=== PATIENT | male | born 1945 | race Two or more races ===

== ENCOUNTER 2025-09-27 12:39 | Outpatient (AMB) | payer MEDICARE, SELFPAY ==
--- OUTSIDE RECORDS SUMMARY | 2025-09-22 08:10 | XMS_ITS | Encounter Summary ---
Author Organization [facility] Address [address] [place] [address] Care Team Providers Care Mesh Cutter Name Role Phone iLam Yan MD Primary Care Provider [phone] Reason for Visit * Reason Comments Hospital Follow-up Encounter Details Date Type Department Care Team (Late st Contact Info) Description 09/22/2025 8:10 AM EST Office Visit 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 (Primary Dx); Chest pain, unspecified type; Status post coronary artery stent placement; Pure hypercholesterolemia; Primary hypertension; Respiratory crackles at right lung base; Paroxysmal atrial fibrillation (CMS/HCC V24, CMS/HCC V28); Secondary hypercoagulable state (CMS/HCC V24); History of GI bleed; Bradycardia; PVC's (premature ventricular contractions); Hospital discharge follow-up Social History Tobacco Use Types Packs/Day Years Used Date Smoking Tobacco: Former Cigarettes 1 40 0 10/12/1954 - 10/12/1994 Smokeless Tobacco: Never Alcohol Use Standard Drinks/Week Comments No 0 (1 standard drink = 0.6 oz pur e alcohol) Housing Instability Answer Date Recorde d Are you worried that in the next 2 months you may not have stable housing? No 07/03/2025 Food Access & Nutrition Answer Date Rec orded Do you have access to a vari ety of food including fruits and vegetables? Yes 07/03/2025 Access to Healthcare Answer Date Record ed Within the last 3 months, ho w many times did you visit the emergency department for your medical care? 0 07/03/2025 Health Literacy Answer Date Recorded How often do you need to hav e someone help you when you read instructions, pamphlets, or other written material from your doctor or pharmacy? Never 07/03/2025 Caregiver: How often do you need to have someone help you when you read instructions, pamphlets, or other written material from your doctor or pharmacy? Not on file 07/03/2025 Financial Risk Answer Date Recorded How hard is it for you to pa y for the very basics like food, housing, medical care, and air conditioning / heating? Somewhat hard 07/03/2025 Transportation Answer Date Recorded Has the lack of transportati on kept you from meetings, work, or from getting things needed for daily living? No Has the lack of transportati on kept you from medical appointments or from getting medications? No 07/03/2025 Social Isolation Answer Date Recorded How often do you feel lonely or isolated from th ose around you? Never 07/03/2025 Food Risk Answer Date Recorded Within the past 12 months we worried whether our food would run out before we got money to buy more. Never true 07/03/2025 Within the past 12 months th e food we bought just didn't last and we didn't have money to get more. Never true 07/03/2025 Dependent Care Answer Date Recorded Do you need help finding or paying for care for your loved ones. For example, early childhood associate or elderly care for an older adult? No 07/03/2025 Education Answer Date Recorded Do you think completing more education or training, like finishing a GED, going to college, or learning a trade, would be helpful for you? N/A 07/03/2025 Employment and Income Answer Date Recor ded During the last four weeks, have you been actively looking for work? No 07/03/2025 Living Situation Answer Date Recorded What is your living situation? Unrecognized valu e 07/03/2025 Interpersonal Safety Answer Date Record ed Physical Abuse Unrecognized value 04/20/2025 Verbal Abuse Unrecognized value 04/20/2025 Sex and Gender Information Value Date Recorded Sex Assigned at Male 11/03/2024 8:26 AM EST Legal Sex Male 11:36 PM EST Gender Identity Male 09/01/2024 12:32 PM EST Sexual Orientation Straight 11/03/2024 8: 26 AM EST documented as of this encounter Last Filed Vital Signs Vital Sign Reading Time Taken Comments Blood Pressure 160/84 09/22/2025 8:51 AM EST Pulse 58 09/22/2025 7:59 AM EST Temperature - - Respiratory Rate - - Oxygen Saturation 99% 09/22/2025 7:59 AM EST Inhaled Oxygen Concentration - - Weight 72.1 kg (159 lb) 09/22/2025 7:59 AM EST Height 165.1 cm (5' 5 ) 09/22/2025 7:59 AM EST Body Mass Index 26.46 09/22/2025 7:59 AM EST documented in this encounter Ordered Prescriptions Prescription Sig Dispense Quantity Refills Last Filled Start Date End Date amLODIPine (NORVASC) 2.5 mg tabletIndications: Primary hypertension Take 1 tablet (2.5 mg total) by mouth 1 (one) time each day. 90 each 2 09/22/2025 nitroglycerin (NITROSTAT) 0.4 mg SL tabletIndications: Chest pain, unspecified type Place 1 tablet (0.4 mg total) under the tongue every 5 (five) minutes if needed for chest pain (up to 3 times in 15 min). 25 tablet 3 09/22/2025 documented in this encounter Progress Notes * Marcelle Lind, CREDIT REPORTING CLERK - 09/22/2025 8:10 AM ESTAssociated Problem(s): Coronary artery disease involving navajo coronary artery of navajo heart with out angina pectoris Now status post stent placement in late August. The patient has been dealing with some back pain over the last week which has limited his activity; however, prior to this he was doing his typical daily activities, but taking it easy and was not having any exertional symptoms. I have asked him to continue to increase his activity as tolerated, calling us for any concerning anginal symptoms which we reviewed in detail today. He is agreeable to this. In the interim, we will not make any changes to his cardioprotective medical therapy; continue metoprolol, atorvastatin, and clopidogrel; clopidogrel was recommended to be lifelong in addition to Eliquis for cardioembolic prophylaxis. We reviewed concerning signs and symptoms of a major bleeding event in 1 to call the office or seek urgent medical attention and he and his daughter verbalized understanding. We discussed cardiac risk reductionthrough lifestyle modifications with healthy diet, and weight management. The patient was advised to seek emergent medical attention by calling 911 if they were to develop severe dyspnea, chest pain that did not resolve with rest or nitroglycerin, or if they were to faint. Orders: Lipid panel with reflex to direct LDL; Future * Marcelle Lind NP - 09/22/2025 8:10 AM ESTAssociated Problem(s): Hyperlipidemia LDL goal for this patient with history of coronary artery disease is less than 70, ideally less than 55. His most recent lipid panel was completed on 07/03/2025 with an LDL of 52. We will plan to update a lipid panel prior to his next visit with me in 3 months. Continue atorvastatin. Orders: Lipid panel with reflex to direct LDL; Future * Marcelle Lind NP - 09/22/2025 8:10 AM ESTAssociated Problem(s): Primary hypertension Blood pressure was elevated on initial check as well as recheck; review of his flowsheets show thatit was elevated in June as well. His metoprolol dosing was decreased while hospitalized due tobradycardia and this is likely affecting things as well. We will add on a very small dose of amlodipine 2.5 mg daily. They will obtain a blood pressure cuff for home monitoring 1 to 2 hours after morning medications, recording these readings as well as heart rates and following up in our office with nursing for a blood pressure check in approximately 2 weeks. I have asked them to bring the blood pressure cuff with him so that we can correlate with our readings and know that is working properly.They are agreeable to this plan. They will call sooner for any symptoms concerning for hypotension such as lightheadedness or dizziness. We will update a metabolic panel prior to the next visit in approximately 3 months. Orders: Basic metabolic panel; Future CBC and differential; Future amLODIPine (NORVASC) 2.5 mg tablet; Take 1 tablet (2.5 mg total) by mouth 1 (one) time each day. * Marcelle Lind NP - 09/22/2025 8:10 AM ESTAssociated Problem(s): Paroxysmal atrial fibrillation (CMS/HCC V24, CMS/HCC V28) Recent 48-hour Holter monitor showed rate was well-controlled on reduced dose of metoprolol and hisatrial fibrillation burden was quite low. He will continue metoprolol at current dosing. We discussed the risks and benefits of continuing with anticoagulation and he wishes to continue with the current plan. He has not had any recurrent GI bleeding or other concerning episodes of bleeding; no falls . He is on the appropriate dose of Eliquis 5 mg twice daily for his age of less than 80 years, weight of greater than 60 kg, and creatinine of less than 1.5. They are aware of the need to seek urgentmedical attention for any uncontrolled bleeding, signs or symptoms of GI or other internal bleeding, or for any head injury. * Marcelle Lind NP - 09/22/2025 8:10 AM ESTAssociated Problem(s): Secondary hypercoagulable state (CMS/HCC V24) * Marcelle Lind NP - 09/22/2025 8:10 AM ESTAssociated Problem(s): History of GI bleed Orders: CBC and differential; Future * Marcelle Lind NP - 09/22/2025 8:10 AM ESTAssociated Problem(s): Respiratory crackles at right lung base Patient reports that he has been told he has crackles in his right lung base intermittently in the past. He denies any shortness of breath at rest or with exertion; no recent fevers or chills or respiratory illness. He does not have any other signs or symptoms of overt heart failure and these crackles sound dry in nature. We will update a chest x-ray for further evaluation and readdress this as needed. Orders: XR Chest 2 Views; Future * Marcelle Lind NP - 09/22/2025 8:10 AM ESTAssociated Problem(s): Status post coronary artery stent placement * Marcelle Lind NP - 09/22/2025 8:10 AM ESTAssociated Problem(s): Hospital discharge follow-up Hospital records reviewed medications reconciled. * Marcelle Lind NP - 09/22/2025 8:10 AM ESTAssociated Problem(s): Bradycardia Beta-blockade likely contributory; however, given he was noted to be having frequent PVCs while hospitalized and secondary to his history of atrial fibrillation, we will continue metoprolol as he appears to be tolerating it well and is asymptomatic of his bradycardia. We will continue to monitor this with time; worrisome signs or symptoms for which he should return to care or seek urgent medical attention were reviewed and he verbalizes understanding. * Marcelle Lind NP - 09/22/2025 8:10 AM ESTAssociated Problem(s): PVC's (premature ventricular contractions) As above. No PVCs noted on EKG today. documented in this encounter Plan of Treatment Upcoming Encounters Date Type Department Care Team (Late st Contact Info) Description 10/09/2025 9:30 AM EST Clinical Support 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 Pure hypercholesterolemia 1 Occurrences starting 09/22/2025 until 09/22/2026 CBC and differential Lab Routine Primary hypertension History of GI bleed 1 Occurrences starting 09/22/2025 until 09/22/2026 documented as of this encounter Procedures Procedure Name Priority Date/Time Associated Diagnosis Comments ECG 12-LEAD Routine 09/22/2025 10:00 AM EST Chest pain, unspecified type documented in this encounter Results * XR Chest 2 Views (09/27/2025 7:41 AM EST) Anatomical Region Laterality Modality Body Radiographic Ivon ging 09/27/2025 7:57 AM EST Impressions 09/27/2025 8:00 AM EST No acute pulmonary disease. Interstitial prominence consistent with fibrosis is unchanged as compared to prior studies performed 02/18/2023 and 04/05/2018. Code 74943 -------- FINAL REPORT -------- Dictated By: Fausto Thakur Dictated Date: 09/27/2025 07:57 ET Assigned Physician: Fausto Thakur Reviewed and Electronically Signed By: Fausto Thakur Signed Date: 09/27/2025 08:00 ET Workstation ID: [id number] Transcribed By: Self Edit Transcribed Date: 09/27/2025 07:57 ET Narrative 09/27/2025 8:00 AM EST HISTORY: The patient is a 80-year-old male with chest pain, as well as abnormal breath sounds at the right lung base. FINDINGS: PA and lateral radiographs of the chest again demonstrate 2 surgical anchors in the right humeral head as also seen on the prior study performed 02/18/2023. The cardiac silhouette is within normal limits. The aortic knob is calcified. There is mild interstitial prominence bilaterally, stable since the prior study as well as compared to the preceding chest radiograph performed 04/05/2018, consistent with interstitial fibrosis. There is no consolidation, mass, pulmonary vascular congestion, or pleural effusion. Procedure Note Fausto Thakur MD - 09/27/2025 HISTORY: The patient is a 80-year-old male with chest pain, as well asabnormal breath sounds at the right lung base. FINDINGS: PA and lateral radiographs of the chest again demonstrate 2surgical anchors in the right humeral head as also seen on the prior studyperformed 02/18/2023. The cardiac silhouette is within normal limits. Theaortic knob is calcified. There is mild interstitial prominencebilaterally, stable since the prior study as well as compared to thepreceding chest radiograph performed 04/05/2018, consistent withinterstitial fibrosis. There is no consolidation, mass, pulmonary vascularcongestion, or pleural effusion. IMPRESSION: No acute pulmonary disease. Interstitial prominence consistent withfibrosis is unchanged as compared to prior studies performed 02/18/2023 and04/05/2018. Code 48583 -------- FINAL REPORT -------- Dictated By: Fausto Thakur Dictated Date: 09/27/2025 07:57 ET Assigned Physician: Fausto Thakur Reviewed and Electronically Signed By: Fausto Thakur Signed Date: 09/27/2025 08:00 ET Workstation ID: [id number] Transcribed By: Self Edit Transcribed Date: 09/27/2025 07:57 ET us Marcelle Lind NP IMG XR PROCEDURES Fin al Result * ECG 12 lead (09/22/2025 10:00 AM EST) Ventricular Rate ECG 58 BPM GEMUSE Atrial Rate 58 BPM GEMUSE P-R Interval 166 ms GEMUSE QRS Duration 84 ms GEMUSE Q-T Interval 404 ms GEMUSE QTc 396 ms GEMUSE P Wave [place] 38 degrees GEMUSE R [place] 50 degrees GEMUSE T [place] 41 degrees GEMUSE ECG Interpretation Sinus bradycardia Otherwise normal ECG When compared with ECG of 12-MAY-2025 11:16, No significant change was found GEMUSE 09/22/2025 8:19 AM EST 09/22/2025 8:26 AM EST us Marcelle Lind NP ECG ORDERABLES Final Result GEMUSE documented in this encounter Visit Diagnoses Diagnosis 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- Primary Chest pain, unspecified type Status post coronary artery stent placement Postsurgical percutaneous transluminal coronary angioplasty status Pure hypercholesterolemia Primary hypertension Unspecified essential hypertension Respiratory crackles at right lung base Paroxysmal atrial fibrillation (CMS/HCC V24, CMS/HCC V28) Atrial fibrillation Secondary hypercoagulable state (CMS/HCC V24) Secondary hypercoagulable state History of GI bleed Bradycardia Other specified cardiac dysrhythmias PVC's (premature ventricular contractions) Other premature beats Hospital discharge follow-up Other follow-up examination Respiratory crackles at right lung base documented in this encounter Discontinued Medications Medication Sig Discontinue Reason Start Date End Da te aspirin 81 mg EC tablet Take 1 tablet (81 mg total) by mouth 1 (one) time each day. Discontinued by another clinician 03/26/2023 09/22/2025 nitroglycerin (NITROSTAT) 0.[address] 1 tablet (0.4 mg total) under the tongue. Reorder 02/18/2023 09/22/2025 documented as of this encounter Historical Medications * This list may reflect changes made after this encounter. Plavix 75 mg tablet Take 1 tablet (75 mg total) by mouth 1 (one) time each day. 09/07/2025 12/06/2025 added in this encounter Additional Health Concerns Assessment Noted Time PHQ-9 Depression Total Score: 0 07/03/20 8:22 AM EDT A fall risk assessment has been complete d for the patient 07/03/2025 8:19 AM EDT documented as of this encounter Care Teams Mesh Cutter Relationship Specialty Start Date End Date Liam Yan MD [address] [place] [phone] PCP - General Internal Medicine 04/12/20 documented as of this encounter
--- OUTSIDE RECORDS SUMMARY | 2025-09-27 07:27 | XMS_ITS | Encounter Summary ---
Author Organization [facility] Address [address] [place] [address] Care Team Providers Care Executive Steward Name Role Phone Liam Yan MD Primary Care Provider [phone] Encounter Details Date Type Department Care Team (Latest Contact Info) Description 09/27/2025 7:27 AM EST Hospital Encounter [facility] X[facility] [address] [place] [phone] Respiratory crackles at right lung base Social History Tobacco Use Types Packs/Day Years [...] care for your loved ones. For example, child nutrition assistant or elderly care for an older adult? [...] AM EST documented as of this encounter Plan of Treatment Upcoming Encounters Date Type Department Care Team (Late st Contact Info) Description 10/09/2025 9:30 AM EST Clinical Support [facility] - [facility] [address] [facility] [address] [place] [address] 10/13/2025 7:30 AM EST Office Visit Adult Medicine [address] [phone] Marcin Ashford PA [address] [place], [place] documented as of this encounter Procedures Procedure Name Priority Date/Time Associated Diagnosis Comments XR CHEST 2 VIEWS Routine 09/27/2025 7:41 AM EST Respiratory crackles at right lung base documented in this encounter Results * XR Chest 2 Views (09/27/2025 7:41 AM EST) Anatomical Region Laterality Modality Body Radiographic Ivon ging 09/27/2025 7:57 AM EST Impressions 09/27/2025 8:00 AM EST No acute pulmonary disease. Interstitial prominence consistent with fibrosis is unchanged as compared to prior studies performed 02/18/2023 and 04/05/2018. Code 95672 -------- FINAL REPORT -------- Dictated By: Fausto Thakur Dictated Date: 09/27/2025 07:57 ET Assigned Physician: Fausto Thakur Reviewed and Electronically Signed By: Fausto Thakur Signed Date: 09/27/2025 08:00 ET Workstation ID: [id number] Transcribed By: Self Edit Transcribed Date: 09/27/2025 [...] to prior studies performed 02/18/2023 and04/05/2018. Code 17593 -------- FINAL REPORT -------- Dictated By: Fausto Thakur Dictated Date: 09/27/2025 07:57 ET Assigned Physician: Fausto Thakur Reviewed and Electronically Signed By: Fausto Thakur Signed Date: 09/27/2025 08:00 ET Workstation ID: [id number] Transcribed By: Self Edit Transcribed Date: 09/27/2025 07:57 ET Marcelle Lind WELL SERVICE FLOORPERSON IMG XR PROCEDURES Fin al Result documented in this encounter Visit Diagnoses Diagnosis Respiratory crackles at right lung base documented in this encounter Additional Health Concerns Assessment Noted Time PHQ-9 Depression Total Score: 0 07/03/20 25 8:22 AM EDT A fall risk assessment has been complete d for the patient 07/03/2025 8:19 AM EDT documented as of this encounter Care Teams Executive Steward Relationship Specialty Start Date End Date Liam Yan MD [address] [place] [address] PCP - General Internal Medicine 04/12/20 documented as of this encounter
--- NOTE | 2025-09-27 12:56 | A.PHYSOV_ITS ---
Vital Signs 09/27/25 13:00 Height 5 ft 5 in Weight 151 lb BMI 25.1 Intake Visit Reasons: back & hip pain Intake Note: Patient is a 80 year old male here for back and hip pain. Class B Truck Driver Required: No Class B Truck Driver Services: Class B Truck Driver Offered & Declined Allergies No Known Allergies Allergy (Verified 09/27/25 12:57) HPI Comments Details: History of Present Illness The patient is a 80 year old male presenting with severe low back pain. He reports the onset of a new, severe back pain last Thursday, which initially was located in the middle of his back, then moved to the left, and is now on the right side. He rates the pain as a 5-6 out of 10 and notes significant difficulty getting up from a seated position and an inability to sleep in his bed due to the pain. He denies radiation of pain into his legs, numbness, tingling, or sciatica-like symptoms. An MRI of his back from February 2024 showed pinched nerves on the right side. His past medical history is notable for a cardiac condition that required hospitali zation about a month ago, from which he reports he is feeling better. He denies a history of diabetes. Pain Description - Onset and Timing: Started last Thursday. - Quality: Described as a real bad pain. - Primary Location: Started in the middle of the low back, moved to the left side, and is now migrating to the right side. - Radiation: Denies radiation into the leg or thigh and denies sciatica. - Severity: Rated as 5 or 6 out of 10. - Exacerbating Factors: Pain is worse when getting up from a seated position, with lumbar extension (causing left hip pain), and with lumbar flexion (causing lower back pain). - Interference with Function: The patient cannot sleep in his bed due to the pain. [facility] Social History Alcohol intake: current Alcohol intake frequency: does not drink Patient Tobacco Use Status: Never used Tobacco Use of substances other than those prescribed or required for medical reasons: No Review of Systems Narrative Review of Systems - Cardiovascular: Reports a history of a heart condition requiring hospitalization about a month ago, with current symptoms improved. - Musculoskeletal: Reports acute severe low back pain, rated 5-6/10, that started in the midline and has migrated. - Neurological: Denies radiating leg pain, numbness, tingling, and sciatica. - Endocrine: Denies a history of diabetes. - Genitourinary: Denies groin pain. Physical Exam Exam Exam: Physical Exam Lumbar Spine: Examination of his lumbar spine, there is no visible swelling or deformity. He is tender to lower lumbar facets. He is otherwise nontender. Full range of motion of his lumbar spine. He does have an increase in pain with facet loading. Special Tests: Lhermittes sign was negative Heel Toe walk is normal Left straight leg raise: Negative Right straight leg raise: Negative Special tests Eris test is negative Ganslen's test is negative SI Joint compression test negative Yoon test negative Piriformis stretch is negative Lower Extremities: Or full range of motion bilateral lower extremities. No calf pain or edema. Neuro: Sensation: Intact to lower extremities bilaterally Strength L2 (Psoas): 5/5 on the left and 5/5 on the right. L3 (Quads): 5/5 on the left and 5/5 on the right. L4 (Ant tibialis): 5/5 on the left and 5/5 on the right. L5 (EHL) 5/5 on the left and 5/5 on the right. S1 (Gastroc): 5/5 on the left and 5/5 on the right. DTR L4: (Patellar) Left 2 Right 2 S1: (Achilles) Left 0 Right 2 Babinski Downgoing No pathologic clonus. No involuntary movement. Vital Signs: BMI result Body Mass Index 25.1 Assessment & Plan Assessment & Plan (1) Lumbar radiculopathy: Code(s): M54.16 - Radiculopathy, lumbar region Category: Medical (2) Lumbar spondylosis: Code(s): M47.816 - Spondylosis without myelopathy or radiculopathy, lumbar region Category: Medical Plan Pain Management - Affect: Pain is interfering with his ability to sleep. - Analgesia: Current pain level is 5-6 out of 10. - Adverse Effects: No current pain medications or adverse effects were discussed. - Activities of Daily Living: Reports significant difficulty rising from a seated position and is unable to sleep in his bed. - Aberrant Drug-Related Behaviors: No aberrant behaviors were noted or discussed. Plan Patient was informed and verbally consented to the use of an ambient scribe for clinic note documentation during this visit. 1. Low Back Pain The patient's acute low back pain is attributed to his known degenerative disc disease and a right-sided pinched nerve identified on a February 2024 MRI. Treatment options, including conservative management with a prednisone taper and an epidural steroid injection, were discussed. The patient has opted to proceed with a course of oral steroids first. We may consider right L5 TFESI if his symptoms do not markedly improved. A 9-day prednisone taper will be prescribed, starting at 60 mg for 3 days, followed by 40 mg for 3 days, and then 20 mg for 3 days. Risks of an injection, including infection, bleeding, and nerve damage, were reviewed. If his pain is not adequately controlled or returns after the steroid taper, the plan is to proceed with an epidural steroid injection. Discussion Notes I discussed with the patient and his son that his current back pain is likely related to his degenerative disc disease and the pinched nerves shown on his February 2024 MRI. We reviewed treatment options, including conservative measures like an oral steroid (prednisone taper) and a more invasive steroid injection into the spine. I explained that while injections provide targeted, longer-lasting relief, they carry small risks of infection, bleeding, and nerve damage. The patient and his son opted to try the oral prednisone taper first, which I agreed is a safe initial approach. I provided instructions for the 9-day taper and advised him to avoid taking any NSAIDs (Motrin, Aleve, ibuprofen, diclofenac) concurrently, but clarified that Tylenol is acceptable. I informed them to contact our office if the pain returns or is not adequately managed after completing the medication, at which point we can proceed with scheduling an injection. The patient and his son understood and agreed with the plan. Patient Instructions - Start taking the prescribed prednisone pills for your back pain. - The medicine is on a 9-day schedule that will be written down for you: Take 60 mg for 3 days, then 40 mg for 3 days, then 20 mg for 3 days. - Do not take any anti-inflammatory medicines like Motrin, Aleve, ibuprofen, or diclofenac while taking prednisone. - You can take Tylenol for pain if you need it. - Continue all of your other medications as usual. - If the pain comes back after you finish the medicine, or if the medicine is not helping, please call our office to discuss the next step, which may be an injection. Medications: New prednisone 3 tabs po for 3 days, 2 tabs po for 3 days, 1 tab po for 3 days 20 mg PO DAILY 18 tabs 0RF 9 days M47.816 - Spondylosis without myelopathy or radiculopathy, lumbar region, M54.16 - Radiculopathy, lumbar region Coding Level of Care Code Tele Est Pt Level 3 (17424) Diagnoses Lumbar radiculopathy M54.16 Lumbar spondylosis M47.816
[2025-09-27 13:00] VITALS: BMI 25.1
--- OUTSIDE RECORDS SUMMARY | 2025-09-27 16:50 | XMS_ITS | Clinical Summary ---
Author Organization [facility] Prior to 03/11/25 Address [address] [place] [address] Care Team Providers Care Gas Well Pumper Name Role Phone Liam Yan MD Primary Care Provider [phone] Allergies No known active allergies Medications Medication Sig Dispensed Refills Start Date End Date Status Aspirin Buf,TbCkse-HnGmfa-TwK, 81 MG TABS Take 81 mg by mouth. 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 Social History Tobacco Use Types Packs/Day Years Used Date Smoking Tobacco: Never Assessed Sex and Gender Information Value Date Recorded Sex Assigned at Not on file Gender Identity Not on file Sexual Orientation Not on file Job Start Date Occupation Industry Not on file Not on file Not on file Last Filed Vital Signs Vital Sign Reading Time Taken Comments Blood Pressure - - Pulse - - Temperature - - Respiratory Rate - - Oxygen Saturation - - Inhaled Oxygen Concentration - - Weight 75.8 kg (167 lb) 01/10/2021 1:40 PM EDT Height 165.1 cm (5' 5 ) 01/10/2021 1:40 PM EDT Body Mass Index 27.79 01/10/2021 1:40 PM EDT Plan of Treatment Health Maintenance Due Date Last Done Comments Hepatitis C Screening 1945 COVID-19 Vaccine (#1) 01/21/1946 Depression Screening 1958 Preventative Health Evaluation 1964 Shingrix-Zoster Vaccine (1 of 2) 1996 Fall Risk Assessment 2011 DTap / Tdap / Td (2 - Td or Tdap) 2019 2009 RSV Adult > 60+ Yrs or (1 - 1-dose 75+ series) 2021 Influenza Vaccine (#1) 2025 8, 07/05/2017, 07/20/2016, Additional history exists Pneumococcal Vaccine Completed 02/25/2016, 12/11/19 12 Hepatitis B Vaccines Aged Out No long er eligible based on patient's age to complete this topic RSV Ped < 20 months Aged Out No longe r eligible based on patient's age to complete this topic Care Teams Gas Well Pumper Relationship Specialty Start Date End Date Liam Yan MD PCP - General Internal Medicine 09/20/20
--- OUTSIDE RECORDS SUMMARY | 2025-09-27 16:50 | XMS_ITS | Encounter Summary ---
Author Organization [facility] Address [address] [place] [address] Care Team Providers Care Sales Attendant Building Materials Name Role Phone Liam Yan MD Primary Care Provider [phone] Reason for Referral * Cardiac Stress Testing (Routine) - Pending Review Specialty Diagnoses / Procedures Referred By Contac t Referred To Contact Cardiology Diagnoses Paroxysmal atrial fibrillation (CMS/HCC V24, CMS/HCC V28) Procedures Cardiac holter monitor (<= 48 hours) WY ECG EXTERNAL UP TO 48 HOURS RECORDING WY ECG EXTERNAL < 48 HOURS CONTINUOUS RECORDING/STORAGE R&I BY A PHYS/QHP WY EXTERNAL ECG UP TO 48 HRS INCL RECORDING SCANNING ANLYS W REPORT Greg Keith MD [address] [place] [address] Dr Alberto [address] [place] [phone] Phone: tel: fax: [facility] Referral ID Status Reason Start Date Expiration Date V isits Requested Visits Authorized [id number] Pending Review 09/07/2025 09/07/2026 1 1 Encounter Details Date Type Department Care Team (Late st Contact Info) Description 09/07/2025 Telephone [facility] [address] [place] [address] Greg Keith MD [address] [place] [address] [place] [address] Social History Tobacco Use Types Packs/Day Years [...] your loved ones. For example, early childhood director or elderly care for an older adult? [...] AM EST documented as of this encounter Progress Notes * Pretty Perrin - 09/11/2025 4:09 PM EST Patient called back and moved 48hr holter appt to 09/13/25 @ 8am. Informed of location. * Pretty Perrin - 09/11/2025 11:28 AM EST 48hr holter scheduled for 10/03/25 @ 1pm. I called patient and left message on machine, asked for acall back if not convenient or to check for sooner opening. * Greg Keith MD - 09/07/2025 4:41 PM EST Please call the patient for a 48-hour Holter monitor. Diagnosis: Paroxysmal atrial fibrillation. Bradycardia. documented in this encounter Plan of Treatment Upcoming Encounters Date Type Department Care Team (Late st Contact Info) Description 10/09/2025 9:30 AM EST Clinical Support [facility] - [address] [place] [address] 10/13/2025 7:30 AM EST Office Visit Adult Medicine [facility] [address] [place] [address] Marcin Ashford PA [address] [place], [place] Pending Results Name Type Priority Associated Diagnoses Date /Time Cardiac holter monitor (<= 48 hours) Cardiac Services Routine Paroxysmal atrial fibrillation (CMS/[facility] V24, CMS/HCC V28) 09/13/2025 8:00 AM EST Scheduled Orders Name Type Priority Associated Diagnoses Orde r Schedule Cardiac holter monitor (<= 48 hours) Cardiac Services Routine Paroxysmal atrial fibrillation (CMS/HCC V24, CMS/HCC V28) Expected: 09/14/2025, Expires: 09/07/2027 documented as of this encounter Visit Diagnoses Diagnosis Paroxysmal atrial fibrillation (CMS/HCC V24, CMS/HCC V28)- Primary Atrial fibrillation documented in this encounter Additional Health Concerns Assessment Noted Time PHQ-9 Depression Total Score: 0 07/03/20 25 8:22 AM EDT A fall risk assessment has been complete d for the patient 07/03/2025 8:19 AM EDT documented as of this encounter Care Teams Sales Attendant Building Materials Relationship Specialty Start Date End Date Liam Yan MD [address] [place] [address] PCP - General Internal Medicine 04/12/20 documented as of this encounter
--- OUTSIDE RECORDS SUMMARY | 2025-09-27 16:50 | XMS_ITS | Encounter Summary ---
Author Organization [facility] Address [address] [place] [address] Care Team Providers Care Internal Control Consultant Name Role Phone Liam Yan MD Primary Care Provider [phone] Reason for Visit * Reason Onset Date Comments Medication 09/22/2025 Encounter Details Date Type Department Care Team (Late st Contact Info) Description 09/22/2025 Telephone [facility] - [facility] [address] [facility] [address] [place] [address] Adam Arana MD [address] [place] [address] [place] [address] Social History Tobacco Use Types [...] Record ed Within the last 3 months, janes trent many times did you visit the emergency [...] care for your loved ones. For example, children's book author or elderly care for an older adult? [...] as of this encounter Progress Notes * Tabitha Manzanares RN - 09/22/2025 10:20 AM EST Called pt's daughter Victorina back this AM. Made aware per OV notes pt is supposed to be taking metoprolol at current prescribed dose and Amlodipine 2.5mg daily. Is aware of daily BP/HR instructions andBP check visit - aware to bring BP/HR log and blood pressure cuff. Is thankful for the call back. * Sindy Velarde - 09/22/2025 9:16 AM EST Patient's daughter Victorina (patient gave verbal permission) called and stated that at the patient's office visit today, 09/22, he was prescribed Amlodipine. Victorina wants to know if the patient should betaking the Metoprolol as well, or stop taking the Metoprolol. She would like a call back at [phone]. documented in this encounter Plan of Treatment Upcoming Encounters Date Type Department Care Team (Late st Contact Info) Description 10/09/2025 9:30 AM EST Clinical Support [facility] - [facility] [address] [facility] [address] [place] [id number] 10/13/2025 7:30 AM EST Office Visit Adult Medicine [address] [phone] Marcin Ashford PA [address] [place] [address] documented as of this encounter Visit Diagnoses Not on filedocumented in this encounter Additional Health Concerns Assessment Noted Time PHQ-9 Depression Total Score: 0 07/03/20 25 8:22 AM EDT A fall risk assessment has been complete d for the patient 07/03/2025 8:19 AM EDT documented as of this encounter Care Teams Internal Control Consultant Relationship Specialty Start Date End Date Liam Yan MD [address] [place] [address] PCP - General Internal Medicine 04/12/20 documented as of this encounter
--- OUTSIDE RECORDS SUMMARY | 2025-09-27 16:51 | XMS_ITS | Clinical Summary ---
Author Organization [facility] [address] [place] [address] [place] [phone] Phone Care Team Providers Care Cupola Worker Name Role Phone Liam Yan MD Primary Care Provider [phone] Allergies No known active allergies Medications cyanocobalamin, vitamin B-12, (VITAMIN B-12 ORAL) Take by mouth. Activ e diclofenac (VOLTAREN) 1 % topical gel Apply 4 g topically. 04/02/20 23 Active ketoconazole (NIZORAL) 2 % cream 11/15/19 22 Active triamcinolone (KENALOG) 0.1 % cream Apply topically 2 (two) times a day. 09/19/20 20 Active acetaminophen (TYLENOL 8 HOUR) 650 mg 8 hr tablet Take 1 tablet (650 mg total) by mouth every 8 (eight) hours if needed. 12/03/19 24 Active ibuprofen (ADVIL,MOTRIN) 800 mg tablet Take 1 tablet (800 mg total) by mouth 3 (three) times a day if needed for mild pain (pain). 90 tablet 5 12/29/19 25 026 Active apixaban (ELIQUIS) 5 mg tabletIndication s:Irregular heart beat,New onset atrial fibrillation (CMS/HCC V24, CMS/HCC V28),History of coronary angioplasty with insertion of stent Take 1 tablet (5 mg total) by mouth 2 (two) times a day. 180 each 3 02/21/20 25 026 Active metoprolol succinate (TOPROL-XL) 50 mg 24 hr tabletIndication s:Irregular heart beat,New onset atrial fibrillation (CMS/HCC V24, CMS/HCC V28),History of coronary angioplasty with insertion of stent Take 1 tablet (50 mg total) by mouth 1 (one) time each day. 90 tablet 3 02/21/20 25 026 Active Additional Information Patient taking differently: 25 mgoral Daily,Changed on D/C summary, Reported on 09/22/2025 atorvastatin (LIPITOR) 40 mg tablet Take 1 tablet (40 mg total) by mouth 1 (one) time each day. 90 tablet 1 07/03/20 25 Active pantoprazole (PROTONIX) 40 mg EC tablet Take 1 tablet (40 mg total) by mouth 2 (two) times a day. 180 tablet 1 07/03/20 25 025 Active Plavix 75 mg tablet Take 1 tablet (75 mg total) by mouth 1 (one) time each day. 09/07/20 25 026 Active nitroglycerin (NITROSTAT) 0.4 mg SL tabletIndication s:Chest pain, unspecified type Place 1 tablet (0.4 mg total) under the tongue every 5 (five) minutes if needed for chest pain (up to 3 times in 15 min). 25 tablet 3 09/22/20 25 Active amLODIPine (NORVASC) 2.5 mg tabletIndication s:Primary hypertension Take 1 tablet (2.5 mg total) by mouth 1 (one) time each day. 90 each 2 09/22/20 25 026 Active aspirin 81 mg EC tablet Take 1 tablet (81 mg total) by mouth 1 (one) time each day. 03/26/20 23 025 Discontinu ed(Discont inued by another clinician) nitroglycerin (NITROSTAT) 0.[address] 1 tablet (0.4 mg total) under the tongue. 02/19/20 23 025 Discontinu ed(Reorder ) Active Problems Problem Noted Date Diagnosed Date Respiratory crackles at right lung base 09/22/20 25 Assessment & Plan (09/22/2025 9:59 AM EST): Patient reports that he has been told [...] needed. Orders: XR Chest 2 Views; Future Hospital discharge follow-up 09/22/2025 Assessment & Plan (09/22/2025 9:59 AM EST): Hospital records reviewed medications reconciled. PVC's (premature ventricular contractions) 09/22 Assessment & Plan (09/22/2025 9:59 AM EST): As above. No PVCs noted on EKG today. Precordial pain 09/05/2025 Secondary hypercoagulable state 05/12/2025 Assessment & Plan (09/22/2025 9:59 AM EST): Assessment & Plan (05/12/2025 4:32 PM EDT): History of GI bleed 05/12/2025 Assessment & Plan (09/22/2025 9:59 AM EST): Orders: CBC and differential; Future Assessment & Plan (07/03/2025 8:42 AM EDT): Assessment & Plan (05/12/2025 4:32 PM EDT): Bradycardia 05/12/2025 Assessment & Plan (09/22/2025 9:59 AM EST): Beta-blockade likely contributory; however, given he was [...] attention were reviewed and he verbalizes understanding. Assessment & Plan (05/12/2025 4:32 PM EDT): Paroxysmal atrial fibrillation 02/20/2025 Assessment & Plan (09/22/2025 9:59 AM EST): Recent 48-hour Holter monitor showed rate was well-controlled on reduced dose of metoprolol and his atrial fibrillation burden was quite low. He will continue metoprolol at current dosing. We discussed the risks and benefits of continuing with anticoagulation and he wishes to continue with the current plan. He has not had any recurrent GI bleeding or other concerning episodes of bleeding; no falls. He is on the appropriate dose of Eliquis 5 mg twice daily for his age of less than 80 years, weight of greater than 60 kg, and creatinine of less than 1.5. They are aware of the need to seek urgent medical attention for any uncontrolled bleeding, signs or symptoms of GI or other internal bleeding, or for any head injury. Assessment & Plan (07/03/2025 8:42 AM EDT): Assessment & Plan (05/12/2025 4:32 PM EDT): The patient never underwent cardioversion as was originally planned and ECG today shows sinus bradycardia. He is asymptomatic of this bradycardia; given that he appears to be tolerating this well, we will continue metoprolol at current dosing of 50 mg daily. However, he verbalizes understanding of worrisome signs or symptoms for which he should return to care or seek urgent medical attention in relation to both bradycardia as well as atrial fibrillation. We discussed the risks and benefits of continuing with Eliquis for cardioembolic prophylaxis given his [id number] score of 4 representing a 6.7% risk of TIA/stroke/systemic embolism; he wishes to continue with the current plan and is aware to stop the medication immediately for any symptoms of recurrent GI bleed. He is on the appropriate dose of Eliquis 5 mg twice daily for his age of less than 80 years, weight of greater than 60 kg, and creatinine less than 1.5. He is aware to seek urgent medical attention for any uncontrolled bleeding, signs or symptoms of GI or other internal bleeding, or for any head injury. Orders: ECG 12 lead Primary hypertension 12/28/2024 Assessment & Plan (09/22/2025 9:59 AM EST): Blood pressure was elevated on initial check as well as recheck; review of his flowsheets show that it was elevated in June as well. His metoprolol dosing was decreased while hospitalized due to bradycardia and this is likely affecting things as [...] our readings and know that is working properly. They are agreeable to this plan. They will call sooner for any symptoms concerning for hypotension such as lightheadedness or dizziness. We will update a metabolic panel prior to the next visit in approximately 3 months. Orders: Basic metabolic panel; Future CBC and differential; Future amLODIPine (NORVASC) 2.5 mg tablet; Take 1 tablet (2.5 mg total) by mouth 1 (one) time each day. Assessment & Plan (07/03/2025 8:42 AM EDT): Orders: Comprehensive metabolic panel; Future Assessment & Plan (05/12/2025 4:32 PM EDT): Blood pressure is favorable on current medical therapy; continue metoprolol. Status post coronary artery stent placement 11/12 Assessment & Plan (09/22/2025 9:59 AM EST): Pulmonary fibrosis 04/10/2023 Overview (03/03/2025): Dry Rales heard at the bases of both lungs. Recent chest x-ray suggest some fibrosis at the bases of both lungs. Osteoarthritis of right hip 11/21/2021 Overview (03/03/2025): S/p total hip arthoplast 11/18/21 Traumatic tear of right rotator cuff 01/01/2021 Arthritis of right glenohumeral joint 10/02/2020 Anemia of chronic disease 09/19/2019 Aortic root dilatation 04/27/2018 Overview (11/27/2023): Last Assessment & Plan: Last echocardiogram completed 2017; we will update this and readdress this as needed. Assessment & Plan (05/12/2025 4:32 PM EDT): The patient's most recent echocardiogram from 01/2024 notes borderline dilatation of the sinus of Valsalva at 3.9 cm and aorta at the ascending portion at the upper limits of normal at 3.8 cm; we will continue to monitor this on serial echocardiograms. Blood pressure is favorable. Coronary artery disease invo lving [place] coronary artery of [place] heart without angina pectoris 04/27/2018 Overview (03/03/2025): Drug-eluting stent, LAD, Dr. Kincaid, 04/07/2018; in-stent restenosis with CHASIDY placement in February 2023. Assessment & Plan (09/22/2025 9:59 AM EST): Now status post stent placement in late [...] daughter verbalized understanding. We discussed cardiac risk reduction through lifestyle modifications with healthy diet, and weight management. The patient was advised to seek emergent medical attention by calling 911 if they were to develop severe dyspnea, chest pain that did not resolve with rest or nitroglycerin, or if they were to faint. Orders: Lipid panel with reflex to direct LDL; Future Assessment & Plan (07/03/2025 8:42 AM EDT): Assessment & Plan (05/12/2025 4:32 PM EDT): The patient remains active on a regular basis and offers no exertional symptoms to cause concern for underlying ischemia. We will continue cardioprotective medical therapies with metoprolol and atorvastatin; he is no longer on aspirin given concurrent Eliquis use with history of GI bleed. I have confirmed this with Dr. Arana who is in agreement. We discussed cardiac risk reduction through lifestyle modifications with healthy diet, and weight management. The patient was advised to seek emergent medical attention by calling 911 if they were to develop severe dyspnea, chest pain that did not resolve with rest or nitroglycerin, or if they were to faint. 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 His most recent lipid panel was completed on 07/03/2025 with an LDL of 52. We will plan to update a lipid panel prior to his next visit with me in 3 months. Continue atorvastatin. Orders: Lipid panel with reflex to direct LDL; Future Assessment & Plan (07/03/2025 8:42 AM EDT): Orders: Lipid panel with reflex to direct LDL; Future Assessment & Plan (05/12/2025 4:32 PM EDT): The patient's most recent lipid panel was completed on 02/15/2025 revealing an LDL of 45; LDL goal for this patient was a history of coronary artery disease is less than 70. Continue atorvastatin. Tuberculosis 12/31/2010 Overview (03/03/2025): Possibly in the 1970s Dietary B12 deficiency 08/20/2008 Calculus of kidney 06/17/2007 Resolved Problems Problem Noted Date Diagnosed Date Resolved Date Irregular heart beat 02/20/2025 025 Lung field abnormal finding on examination 06/27/2024 03/03/2025 Chest pain 06/23/2024 03/03/2025 Overview (09/12/2024): Last Assessment & Plan: Resolved with resolution of cough and recent viral illness. No further concerns at this time. 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 Shoulder stiffness, right 03/05/2022 Impingement syndrome of right shoulder 10/02/2020 03/03/2025 Chronic heel pain, right 09/19/2019 Pain of left hand 10/14/2017 03/03/2025 Impaired fasting glucose 02/24/2016 Overview (11/27/2023): Glucose 112, 11/15/[address] scan, chest 12/31/201002/10 Overview (11/27/2023): Significance yet to be determined, sending for old films Encounters Date Type Department Care Team Description 09/27/2025 7:27 AM EST Hospital Encounter [facility] Xray [address] [place] [address] Respiratory crackles at right lung base 09/22/2025 8:10 AM EST Office Visit [facility] - [address] [place] [id number] Marcelle Lind NP Coronary artery disease involving [place] coronary artery of [place] heart without angina pectoris (Primary Dx); Chest pain, unspecified type; Status post coronary artery stent placement; Pure hypercholesterolemia; Primary hypertension; Respiratory crackles at right lung base; Paroxysmal atrial fibrillation (CMS/HCC V24, CMS/HCC V28); Secondary hypercoagulable state (CMS/HCC V24); History of GI bleed; Bradycardia; PVC's (premature ventricular contractions); Hospital discharge follow-up 09/22/2025 Telephone [facility] - [address] [place] [address] Adam Arana MD 09/13/2025 8:00 AM EST Ancillary Procedure [facility] - [address] [place] [address] Paroxysmal atrial fibrillation (CMS/HCC V24, CMS/HCC V28) 09/07/[address] [facility] [address] [place] [address] Greg Keith MD 09/07/[address] [place] [address] Greg Keith MD 09/05/2025 Telephone [facility] - [address] [place] [address] Adam Arana MD 07/03/2025 8:00 AM EDT Office Visit Adult Medicine [address] [phone] Liam Yan MD Encounter for subsequent annual wellness visit (AWV) in Medicare patient (Primary Dx); Primary hypertension; Pure hypercholesterolemia; Encounter for long-term (current) use of medications; Coronary artery disease involving [place] coronary artery of [place] heart without angina pectoris; Paroxysmal atrial fibrillation (CMS/HCC V24, CMS/HCC V28); History of GI bleed; Status post coronary artery stent placement from Last 3 Months Immunizations Immunization Administration Dates Next Due Influenza Quadravalent, 0.5m l (Fluad) 65yo and older 06/10/2023,06/27/2022,06/21/2021 Influenza Quadravalent, 0.5m l (Fluzone High-dose) 65yo and older 05/28/2020 Influenza trivalent, 0.5mL ( Fluad) 65yo and older 06/30/2024 Influenza trivalent, 0.5mL ( Fluzone High-dose) 65yo and older 06/28/2018,07/05/2017,07/20/2016,06/27 Influenza trivalent, with pr eservative (Fluzone; Afluria) 6mo and older 07/21/2014,06/21/2013,06/30/2012,07/06,07/21/2010,09/14/2009 Pneumococcal conjugate 13 va lent (Prevnar 13, PCV13) 2mo and older 02/25/2016 Pneumococcal polysaccharide 23 valent (Pneumovax 23) 2yo and older 12/11/2011 Td Tetanus diptheria (Tdvax) 7yo and older 09/19/2019 Tdap Tetanus diptheria acell ular pertussis (Boostrix; Adacel) 7yo and older 2009 Surgical History Surgery Date Site/Laterality Comments SHOULDER SURGERY bilateral HERNIA REPAIR umbilical hernia COLONOSCOPY 08/31/2000 : negative COLONOSCOPY 10/31/2010 9 mm sigmoid colon polyp: Tubular adenoma. COLONOSCOPY 11/06/2015 No polyps. COLONOSCOPY 11/22/2020 : Solitary 5 mm polyp: Tubular adenoma. CATARACT EXTRACTION, BILATERAL CARDIAC CATH DONE ON 09/06/2025 AT [facility] INDICATIONS:Unstable angina. Medical History Medical History Date Comments Dietary B12 deficiency 08/20/2008 History of benign neoplasm of colon 10/31/2010 9 MM sigmoid polyp at [facility] 10/31/2010: Tubular adenoma. Negative colonoscopy 11/06/2015, no colon cancer screening needed for 5 years. Gout 08/13/2017 CAD (coronary artery disease) Hyperlipidemia 02/24/2016 Coronary artery disease invo lving [place] coronary artery of [place] heart without angina pectoris 04/27/2018 Drug-eluting stent, LAD, Dr. Kincaid, 04/07/2018; in-stent restenosis with CHASIDY placement in February 2023. Calculus of kidney 06/17/2007 Aortic root dilatation (CMS/HCC V24) 04/27/2018 Last Assessment & Plan: Last echocardiogram completed 2018; we will update this and readdress this as needed. Pulmonary fibrosis ([facility] V24, [facility] V28) 04/10/2023 Dry Rales heard at the bases of both lungs. Recent chest x-ray suggest some fibrosis at the bases of both lungs. Primary hypertension 12/28/2024 Anticoagulated Chest pain Family History Medical History Relation Name Comments Alcohol abuse Brother Colon cancer Father dx at age > 75 yo Other: Other Mother Tb Stomach cancer Sister Relation Name Status Comments Brother Father (Age 81) Mother (Age 40's) TB Sister Social History Tobacco Use Types Packs/Day Years Used Date Smoking Tobacco: Former Cigarettes 1 40 0 10/12/1954 - 10/12/1994 Smokeless Tobacco: Never Tobacco Cessation:Counseling Given: Not Answered Alcohol Use Standard Drinks/Week Comments No 0 [...] ed Within the last 3 months, ho miley many times did you visit the emergency [...] your loved ones. For example, early childhood services coordinator or elderly care for an older adult? [...] Orientation Straight 11/03/2024 8: 26 AM EST Last Filed Vital Signs Vital Sign Reading Time Taken Comments Blood Pressure 160/84 09/22/2025 8:51 AM EST Pulse 58 09/22/2025 7:59 AM EST Temperature 36.5 C (97.7 F) 07/03/2025 8:01 AM EDT Respiratory Rate 16 07/03/2025 8:01 AM EDT Oxygen Saturation 99% 09/22/2025 7:59 AM EST Inhaled Oxygen Concentration - - Weight 72.1 kg (159 lb) 09/22/2025 7:59 AM EST Height 165.1 cm (5' 5 ) 09/22/2025 7:59 AM EST Body Mass Index 26.46 09/22/2025 7:59 AM EST Plan of Treatment Upcoming Encounters Date Type Department Care Team (Late st Contact Info) Description 10/09/2025 9:30 AM EST Clinical Support [facility] - [facility] [address] [facility] [address] [place] [address] 10/13/2025 7:30 AM EST Office Visit Adult Medicine [facility] [address] [place] [address] Marcin Ashford PA [address] [place], [place] Health Maintenance Due Date Last Done Comments Zoster Vaccines (1 of 2) 1996 RSV Immunization Adult Patients (1 - 1-dose 75+ series) 2021 COVID-19 Vaccine (3 - 2024- season) 2025 01/31/2021, 01/03/2021 Falls Risk Assessment 07/03/2026 07/03/2025, 025 Hypertension/CHF/CAD Annual BMP Blood Test 07/03/2026 07/03/2025, 02/15/2025, 07/05/2024 Medicare Annual Wellness Visit 07/03/2026 07/03/2025 Social Influencers of Health Screening 07/03/2026 07/03/2025 DTaP,Tdap,and Td Vaccines (3 - Td or Tdap) 09/19/2029 09/19/2019, 2009 Cholesterol Screening (Lipid Panel) 07/03/2030 07/03/2025, 02/15/2025, 03/28/2024, Additional history exists Hepatitis C Screening Addressed 11/15/2013 Overri dden with the intention of not completing the topic Pneumococcal Vaccine: 50+ Years Completed 02/25/2016, 12/11/2011 Influenza Vaccine Completed 06/28/2025, , 06/10/2023, Additional history exists Depression Screening Completed 07/03/2025 HIB Vaccines Aged Out No longer eligi ble based on patient's age to complete this topic HPV Vaccines Aged Out No longer eligi ble based on patient's age to complete this topic Hepatitis A Vaccines Aged Out No long er eligible based on patient's age to complete this topic Hepatitis B Vaccines Aged Out No long er eligible based on patient's age to complete this topic IPV Vaccines Aged Out No longer eligi ble based on patient's age to complete this topic MMR Vaccines Aged Out No longer eligi ble based on patient's age to complete this topic Meningococcal ACWY Vaccine Aged Out N o longer eligible based on patient's age to complete this topic Meningococcal B Vaccine Aged Out No l onger eligible based on patient's age to complete this topic RSV Immunization Patients Under 20 months Aged Out No longer eligible based on patient's age to complete this topic Varicella Vaccines Aged Out No longer eligible based on patient's age to complete this topic Procedures Procedure Name Priority Date/Time Associated Diagnosis Comments XR CHEST 2 VIEWS Routine 09/27/2025 7:41 AM EST Respiratory crackles at right lung base ECG 12-LEAD Routine 09/22/2025 10:00 AM EST Chest pain, unspecified type LIPID PANEL WITH REFLEX TO DIRECT LDL Routine 07/03/2025 8:41 AM EDT Pure hypercholesterolemia COMPREHENSIVE METABOLIC PANEL Routine 07/03/2025 8:41 AM EDT Primary hypertension Encounter for long-term (current) use of medications from Last 3 Months Results * XR Chest 2 Views (09/27/2025 7:41 AM EST) Anatomical Region Laterality Modality Body Radiographic Ivon ging 09/27/2025 7:57 AM EST Impressions 09/27/2025 8:00 AM EST No acute pulmonary disease. Interstitial prominence consistent with fibrosis is unchanged as compared to prior studies performed 02/18/2023 and 04/05/2018. Code 48948 -------- FINAL REPORT -------- Dictated By: Fausto Thakur Dictated Date: 09/27/2025 07:57 ET Assigned Physician: Fausto Thakur Reviewed and Electronically Signed By: Fausto Thakur Signed Date: 09/27/2025 08:00 ET Workstation ID: [id number] Transcribed By: Self Edit Transcribed Date: 09/27/2025 [...] to prior studies performed 02/18/2023 and04/05/2018. Code 96677 -------- FINAL REPORT -------- Dictated By: Fausto Thakur Dictated Date: 09/27/2025 07:57 ET Assigned Physician: Fausto Thakur Reviewed and Electronically Signed By: Fausto Thakur Signed Date: 09/27/2025 08:00 ET Workstation ID: [id number] Transcribed By: Self Edit Transcribed Date: 09/27/2025 07:57 ET Marcelle Lind [employer] IMG XR PROCEDURES Fin al Result * ECG 12 lead (09/22/2025 10:00 AM EST) Ventricular Rate ECG 58 BPM GEMUSE Atrial Rate 58 BPM GEMUSE P-R Interval 166 ms GEMUSE QRS Duration 84 ms GEMUSE Q-T Interval 404 ms GEMUSE QTc 396 ms GEMUSE P Wave Wilson 38 degrees GEMUSE R Wilson 50 degrees GEMUSE T Wilson 41 degrees GEMUSE ECG Interpretation Sinus bradycardia Otherwise normal ECG When compared with ECG of 12-MAY-2025 11:16, No significant change was found GEMUSE 09/22/2025 8:19 AM EST 09/22/2025 8:26 AM EST Marcelle Lind [employer] ECG ORDERABLES Final Result GEMUSE * (ABNORMAL) Lipid panel with reflex to direct LDL (07/03/2025 8:41 AM EDT) Cholesterol 119 0 - 200 mg/dL LAB CHEMISTRY METHOD 07/03/2025 11:40 AM [facility] Triglycerides 138 0 - 150 mg/dL LAB CHEMISTRY METHOD 07/03/2025 11:40 AM [facility] HDL 39(L) >=40 mg/dL LAB CHEMISTRY METHOD 07/03/2025 11:40 AM [facility] LDL Calculated 52 0 - 100 mg/dL LAB CHEMISTRY METHOD 07/03/2025 11:40 AM [facility] Comment:Estimated LDL Calcul ated using equation: Total cholesterol - HDL cholesterol - (Triglycerides/5) VLDL Cholesterol Leobardo 27.6 mg/dL LAB CHEMISTRY METHOD 07/03/2025 11:40 AM [facility] Non HDL Chol. (LDL+VLDL) 80 <145 mg/dL LAB CHEMISTRY METHOD 07/03/2025 11:40 AM [facility] Chol/HDL Ratio 3.1 0.0 - 4.4 LAB CHEMISTRY METHOD 07/03/2025 11:40 AM [facility] Blood Venous blood specimen / Unknown Venipuncture / Unknown 07/03/2025 8:41 AM EDT 07/03/2025 8:42 AM EDT us Liam Yan MD LAB BLOOD ORDERABLES Final Resu lt [facility] [address] [place] [address], [place] [phone] * (ABNORMAL) Comprehensive metabolic panel (07/03/2025 8:41 AM EDT) Sodium 143 133 - 145 mmol/L LAB CHEMISTRY METHOD 07/03/2025 11:40 AM [facility] Potassium 3.9 3.5 - 5.5 mmol/L LAB CHEMISTRY METHOD 07/03/2025 11:40 AM [facility] Chloride 112(H) 96 - 110 mmol/L LAB CHEMISTRY METHOD 07/03/2025 11:40 AM [facility] CO2 28 21 - 32 mmol/L LAB CHEMISTRY METHOD 07/03/2025 11:40 AM [facility] Anion Gap 3 3 - 11 LAB CHEMISTRY METHOD 07/03/2025 11:40 AM [facility] Glucose 88 70 - 100 mg/dL LAB CHEMISTRY METHOD 07/03/2025 11:40 AM [facility] BUN 21 5 - 25 mg/dL LAB CHEMISTRY METHOD 07/03/2025 11:40 AM [facility] Creatinine 0.89 0.70 - 1.30 mg/dL LAB CHEMISTRY METHOD 07/03/2025 11:40 AM [facility] eGFR 88 >=60 mL/min/1. 73m2 LAB CHEMISTRY METHOD 07/03/2025 11:40 AM [facility] Comment:Calculation based on the Chronic Kidney Disease Epidemiology Collaboration (CKD-EPI) equation refit without adjustment for race. BUN/Creatinine Ratio 23.6 LAB CHEMISTRY METHOD 07/03/2025 11:40 AM EDT [facility] Calcium 8.7 8.5 - 10.5 mg/dL LAB CHEMISTRY METHOD 07/03/2025 11:40 AM [facility] AST (SGOT) 20 10 - 42 unit/L LAB CHEMISTRY METHOD 07/03/2025 11:40 AM [facility] ALT (SGPT) 24 10 - 60 unit/L LAB CHEMISTRY METHOD 07/03/2025 11:40 AM [facility] Alkaline Phosphatase 77 42 - 121 unit/L LAB CHEMISTRY METHOD 07/03/2025 11:40 AM [facility] Total Protein 6.5 6.0 - 8.0 g/dL LAB CHEMISTRY METHOD 07/03/2025 11:40 AM [facility] Albumin 3.7 3.2 - 5.0 g/dL LAB CHEMISTRY METHOD 07/03/2025 11:40 AM [facility] Total Bilirubin 0.5 0.0 - 1.4 mg/dL LAB CHEMISTRY METHOD 07/03/2025 11:40 AM [facility] Blood Venous blood specimen / Unknown Venipuncture / Unknown 07/03/2025 8:41 AM EDT 07/03/2025 8:42 AM EDT us Liam Yan MD LAB BLOOD ORDERABLES Final Resu lt [facility] [address] [place] [address], from Last 3 Months Insurance [employer] MEDICARE Advance Directives * Full Code - Confirmed (Latest Code Status on File) Date Activated Date Inactivated Comments 07/03/2025 8:22 AM This code stat us was ascertained in the following way: Code status discussion: discussion with patient To update the patient's code status, place a code status order. Do not modify or discontinue any currently active code status orders. Care Teams Cupola Worker Relationship Specialty Start Date End Date Liam Yan MD [address] [place] [id number] PCP - General Internal Medicine 04/12/20
== END 2025-09-27 13:19 | disposition home or self-care (01) ==
LOC: HO.HPHYS 12:40
PROVIDERS: PCP Internal Medicine; Visit Provider Physician Assistant
DX: M54.16 Radiculopathy, lumbar region (principal); M47.816 Spondylosis without myelopathy or radiculopathy, lumbar region
CPT/HCPCS: 99213

== ENCOUNTER → 2025-09-27 12:39 | Outpatient (BNVA) | payer MEDICARE, SELFPAY | PROVIDERS: PCP Internal Medicine; Visit Provider Physician Assistant | DX: M54.16 Radiculopathy, lumbar region (principal); M47.816 Spondylosis without myelopathy or radiculopathy, lumbar region | CPT/HCPCS: 99212 ==